=== PATIENT | male | born 1990 | race Caucasian/White ===

== ENCOUNTER 2018-04-02 03:48 | Emergency (ER) | payer OTHER ==
[2018-04-02 03:54] VITALS: RESP 17
--- NOTE | 2018-04-02 04:00 | ED ---
General Adult HPI - General Chief complaint: Allergic Reaction Stated complaint: ALLERGIC RX Time Seen by Provider: 04/02/18 04:00 Source: patient Mode of arrival: ambulatory Limitations: no limitations - History of Present Illness Initial comments: Reveals a healthy 27-year-old male presenting to the ER for evaluation of redness of his left lower extremity after being stung by a bee approximately 36 hours ago. Patient reports of both his parents have be ALLERGIES and he was concerned that the redness may be due to ALLERGY. However he's noted that over the past 24 hours become more red and swollen despite and Adderall. Patient states that he had to leave work to come to the ER to have it evaluated in needs a work note patient denies any associated symptoms including fevers, chills, nausea or vomiting. He denies any history of DVT or PE. Any known family history of clotting disorder. His been able to attend to his activities of daily living and has not been limited by the redness or swelling of his left lower extremity. - Related Data Previous Rx's Medication Instructions Recorded Amoxicillin 500 mg PO BID 7 Days #125 ml 04/02/18 Allergies Allergy/AdvReac Type Severity Reaction Status Date / Time bee venom protein (honey bee) Allergy Swelling Verified 04/02/18 03:54 codeine Allergy Anaphylaxis Verified 04/02/18 03:54 Review of Systems ROS Statement: Those systems with pertinent positive or pertinent negative responses have been documented in the HPI. ROS Other: All systems not noted in ROS Statement are negative. Past Medical History Past Medical History: No Reported History History of Any Multi-Drug Resistant Organisms: None Reported Past Surgical History: No Surgical Hx Reported Past Psychological History: Bipolar Smoking Status: Current every day smoker Past Alcohol Use History: None Reported Past Drug Use History: Marijuana General Exam Limitations: no limitations General appearance: alert, in no apparent distress Head exam: Present: atraumatic, normocephalic Eye exam: Present: PERRL ENT exam: Present: normal exam Neck exam: Present: normal inspection Respiratory exam: Present: normal lung sounds bilaterally. Absent: respiratory distress, wheezes, rales Cardiovascular Exam: Present: regular rate, normal rhythm GI/Abdominal exam: Present: soft. Absent: distended Extremities exam: Present: full ROM, normal capillary refill. Absent: pedal edema Neurological exam: Present: alert, oriented X3, normal gait Psychiatric exam: Present: normal affect, normal mood Skin exam: Present: warm, dry, erythema (Erythema and mild induration approximately 2 cm in diameter surrounding the apparent envenomation site) Course Vital Signs 04/02/18 03:51 Temperature 98.1 F Pulse Rate 67 Respiratory 17 Rate Blood Pressure 123/62 O2 Sat by Pulse 100 Oximetry Medical Decision Making - Medical Decision Making The patient was seen and evaluated, history was obtained from the patient. Physical exam is consistent with possible contact irritation versus cellulitis. Considering the redness and swelling I will treat for cellulitis. Patient states she is unable to take pills any larger than Benadryl and requests a liquid antibiotic. Amoxicillin will be an appropriate choice. First dose was ordered in the ER prescription was provided and the patient was discharged home and advised to return if he has any progressive worsening development of any purulent discharge, development of any fevers or any new or concerning symptoms. He did offer the patient a venous ultrasound to evaluate for DVT, however considering the isolated location of the erythema and redness, the absence of pitting edema, the absence of risk factors for clot I don't feel at necessary and the patient agreed that he doesn't need a DVT study this time. All questions pertaining care were answered patient discharged home in stable condition with by mouth amoxicillin. Disposition Clinical Impression: Cellulitis Disposition: HOME SELF-CARE Condition: Good Instructions: Cellulitis (ED) Prescriptions: Amoxicillin 500 mg PO BID 7 Days #125 ml Is patient prescribed a controlled substance at d/c from ED?: No Referrals: None,Stated [Primary Care Provider] - 1-2 days Time of Disposition: 04:20
[2018-04-02] MEDS ORDERED: AMOXICILLIN 250 MG/5 ML 80 ML BOTTLE PO ONE (04:18)
[2018-04-02 05:08] VITALS: BP 120/89; PULSE 62; TEMP 98.6
== END 2018-04-02 05:07 | disposition home or self-care (01) ==
LOC: EC 03:48
DX: L03.116 Cellulitis of left lower limb (principal); F17.200 Nicotine dependence, unspecified, uncomplicated; Z88.5 Allergy status to narcotic agent; Z91.030 Bee allergy status
CPT/HCPCS: 99283